=== PATIENT | female | born 1985 | race African-American/Black ===

== ENCOUNTER 2018-08-03 08:26 | Emergency (ER) | payer MEDICAID, OTHER ==
[~2018-08-03] VITALS: Ht 172.7 cm; Wt 91.0 kg
[2018-08-03] MEDS ORDERED: MORPHINE SULFATE 4 MG/ML CPJ (NOT FOR IM USE) IV STA (10:30)
[2018-08-03] MEDS ORDERED: KETOROLAC 30MG/ML VIAL IV STA (10:30)
[2018-08-03] MEDS ORDERED: OXYCODONE HCL/ACETAMINOPHEN 5/325MG TABLET PO ONE (12:00)
[2018-08-03 12:42] VITALS: BP 128/79
== END 2018-08-03 12:46 | disposition home or self-care (01) ==
LOC: ER 08:41
DX: M54.2 Cervicalgia (principal); M79.18 Myalgia, other site
CPT/HCPCS: 73030; 81025; 96374; 96375; 99283; J1885; J2270

== ENCOUNTER 2021-09-23 09:17 | Emergency (ER) | payer SELFPAY ==
[~2021-09-23] VITALS: Ht 167.6 cm; Wt 77.0 kg
[2021-09-23] MEDS ORDERED: KETOROLAC 30MG/ML VIAL IV STA (09:32)
[2021-09-23] MEDS ORDERED: SODIUM CHLORIDE 0.9% 1,000 ML IV ONE (09:45)
[2021-09-23] MEDS ORDERED: HYDROMORPHONE HCL/PF 2MG/ML CPJ IV ONE (09:45)
[2021-09-23 09:59] LABS: BASOPHILS % 0.5 % (0.0-2.0); EOSINOPHILS % 0.9 % (0.0-5.0); HEMATOCRIT. 38.6 % (36.0-48.0); HEMOGLOBIN. 12.8 g/dL (12.0-16.0); LYMPHOCYTES % 28.5 % (20.0-50.0); MEAN CORPUSCULAR HEMOGLOBIN 27.2 pg (28.0-32.0); MEAN CORPUSCULAR VOLUME 81.9 fL (81.0-99.0); MEAN PLATELET VOLUME 8.2 fl (7.4-10.4); NEUTROPHILS % 63.1 % (40.0-76.0); PLATELET 305 x1000/uL (130-400); RED BLOOD CELL COUNT 4.71 mill/uL (4.2-5.4); RED CELL DISTRIBUTION WIDTH 14.1 % (11.6-14.6)
[2021-09-23 10:04] LABS: CHLORIDE 106 mEq/L (98-107)
[2021-09-23] MEDS ORDERED: MORPHINE SULFATE 4 MG/ML CPJ (NOT FOR IM USE) IV ONE (10:30)
[2021-09-23] MEDS ORDERED: IBUP-2029 MT (12:13)
[2021-09-23 12:26] VITALS: BP 110/79
== END 2021-09-23 12:58 | disposition home or self-care (01) ==
LOC: ER 09:31
DX: M79.641 Pain in right hand (principal); D57.1 Sickle-cell disease without crisis
CPT/HCPCS: 36415; 73130; 80053; 85025; 85044; 96361; 96374; 96375; 99284; J1170; J1885; J2270; J7030

== ENCOUNTER 2021-09-25 00:50 | Emergency (ER) | payer MEDICAID ==
[~2021-09-25] VITALS: Ht 165.1 cm; Wt 64.0 kg
[~2021-09-25 00:50] MED LIST: IBUP-2029 MT
[2021-09-25] MEDS ORDERED: VANCOMYCIN 1G PREMIX 200 ML IV SCH (01:45)
[2021-09-25] MEDS ORDERED: CEFTRIAXONE 1 G PREMIX 50 ML IV ONE (01:45)
[2021-09-25] MEDS ORDERED: KETOROLAC 15MG/ML VIAL IV ONE (03:00)
[2021-09-25] MEDS ORDERED: MORPHINE SULFATE 4 MG/ML CPJ (NOT FOR IM USE) IV ONE (03:45)
[2021-09-25 04:04] LABS: BASOPHILS % 0.6 % (0.0-2.0); EOSINOPHILS % 1.4 % (0.0-5.0); HEMATOCRIT. 35.7 % (36.0-48.0); HEMOGLOBIN. 11.8 g/dL (12.0-16.0); LYMPHOCYTES % 27.3 % (20.0-50.0); MEAN CORPUSCULAR HEMOGLOBIN 27.2 pg (28.0-32.0); MEAN CORPUSCULAR VOLUME 82.2 fL (81.0-99.0); MEAN PLATELET VOLUME 9.2 fl (7.4-10.4); MONOCYTES % 6.2 % (2.0-8.0); NEUTROPHILS % 64.5 % (40.0-76.0); PLATELET 243 x1000/uL (130-400); RED BLOOD CELL COUNT 4.34 mill/uL (4.2-5.4); RED CELL DISTRIBUTION WIDTH 14.3 % (11.6-14.6)
[2021-09-25 04:11] LABS: CHLORIDE 111 mEq/L (98-107)
[2021-09-25 04:21] LABS: B-HCG QUANTITATIVE < 1 mIU/mL (<3)
[2021-09-25] MEDS ORDERED: ONDANSETRON HCL 4MG/2ML INJ IV PRN (08:45)
[2021-09-25] MEDS ORDERED: PIPERACILLIN/TAZ 3.375G PREMIX 50 ML IV NR (09:00)
[2021-09-25] MEDS ORDERED: HYDROCODONE/ACETAMINOPHEN 10/325MG TABLET PO PRN (09:15)
[2021-09-25] MEDS ORDERED: ACETAMINOPHEN 325MG TABLET PO PRN (09:15)
[2021-09-25] MEDS ORDERED: NALOXONE HCL 0.4MG/ML VIAL IV PRN (09:30)
[2021-09-25 10:05] VITALS: BP 122/60
[2021-09-25] MEDS ORDERED: CEPH500T MT (13:53)
[2021-09-25] MEDS ORDERED: IBUP-2029 MT (13:53)
[2021-09-25] MEDS ORDERED: IBUPROFEN 600MG TABLET PO ONE (14:00)
[2021-09-25] MEDS ORDERED: PIPERACILLIN/TAZOBACTAM 3.375 G in DEXTROSE 5% WATER 50 ML IV SCH (15:00)
== END 2021-09-25 14:34 | disposition home or self-care (01) ==
LOC: ER 00:50 → CANBEDREQ 15:36
DX: M65.841 Other synovitis and tenosynovitis, right hand (principal); M79.89 Other specified soft tissue disorders
CPT/HCPCS: 36415; 73220; 80053; 84702; 85025; 85651; 86140; 96365; 96367; 96368; 96375; 99284; J0696; J1885; J2270; J2543; J3370

== ENCOUNTER 2023-12-22 15:23 | Emergency (ER) | payer MEDICAID ==
[~2023-12-22] VITALS: Ht 172.7 cm; Wt 94.8 kg
[~2023-12-22 15:23] MED LIST changes: +CEPH500T MT
[2023-12-22 15:30] VITALS: BP 135/69; RESP 16; O2SAT 100
[2023-12-22 15:32] VITALS: PULSE 65
[2023-12-22 17:00] VITALS: TEMP 97.7
[2023-12-22] MEDS: DIPHENHYDRAMINE 25MG CAPSULE PO ONE (17:00)
[2023-12-22] MEDS: ACETAMINOPHEN 325MG TABLET PO ONE (17:00)
[2023-12-22 17:31] LABS: CHLORIDE 107 mEq/L (98-107); POTASSIUM 4.2 mEq/L (3.5-5.1); SODIUM 142 mEq/L (136-145)
[2023-12-22 17:32] LABS: CARBON DIOXIDE 26 mEq/L (21-32)
[2023-12-22 17:33] LABS: CALCIUM 8.8 mg/dL (8.7-10.4)
[2023-12-22 17:38] LABS: CREATININE 0.9 mg/dL (0.6-1.0); GLUCOSE 78 mg/dL (70-105); UREA NITROGEN BLOOD 7 mg/dL (9-23)
[2023-12-22 17:40] LABS: B-HCG QUANTITATIVE < 1 mIU/mL (<3)
[2023-12-22 17:45] LABS: BASOPHILS % 0.7 % (0.0-2.0); EOSINOPHILS % 2.2 % (0.0-5.0); HEMATOCRIT. 37.2 % (36.0-48.0); LYMPHOCYTES % 11.9 % (20.0-50.0); MEAN CORPUSCULAR HEMOGLOBIN 27.8 pg (28.0-32.0); MEAN CORPUSCULAR HGB CONC 32.3 g/dL (31.0-37.0); MEAN CORPUSCULAR VOLUME 86.1 fL (81.0-99.0); MONOCYTES % 5.7 % (2.0-8.0); NEUTROPHILS % 79.5 % (40.0-76.0); RED BLOOD CELL COUNT 4.32 mill/uL (4.2-5.4); RED CELL DISTRIBUTION WIDTH 14.6 % (11.6-14.6)
[2023-12-22 17:47] LABS: DIFFERENTIAL COMMENT 1
[2023-12-22 18:15] LABS: PLATELET 216 x1000/uL (130-400)
[2023-12-22 18:16] LABS: MEAN PLATELET VOLUME 9.4 fl (7.4-10.4)
[2023-12-22] MEDS ORDERED: BENZ200C52 MT (18:40)
== END 2023-12-22 19:15 | disposition home or self-care (01) ==
LOC: ER 15:23
DX: R05.9 Cough, unspecified (principal); B34.9 Viral infection, unspecified; I49.9 Cardiac arrhythmia, unspecified; Z88.5 Allergy status to narcotic agent
CPT/HCPCS: 99285; 71046; 80048; 84702; 83880; 85025; 85044; 36415; 93005; Q0163

== ENCOUNTER 2024-05-26 12:42 | Emergency (ER) | payer MEDICAID ==
[~2024-05-26] VITALS: Ht 180.3 cm; Wt 97.0 kg
[~2024-05-26 12:42] MED LIST changes: +BENZ200C52 MT
[2024-05-26 12:59] VITALS: BP 123/85; PULSE 85; RESP 16; TEMP 98; O2SAT 100
[2024-05-26] MEDS: LIDOCAINE HCL 1% 20ML VIAL INFIL ONE (15:00)
[2024-05-26] MEDS ORDERED: DOXY100T28 MT (15:32)
[2024-05-26] MEDS ORDERED: NAPR-1495 MT (15:32)
== END 2024-05-26 17:05 | disposition home or self-care (01) ==
LOC: ER 12:42
DX: L02.414 Cutaneous abscess of left upper limb (principal); D64.9 Anemia, unspecified; D57.1 Sickle-cell disease without crisis; Z90.49 Acquired absence of other specified parts of digestive tract; Z88.5 Allergy status to narcotic agent
CPT/HCPCS: 99283; 10060; J3490

== ENCOUNTER 2025-05-30 07:42 | Emergency (ER) | payer MEDICAID, OTHER ==
[~2025-05-30] VITALS: Ht 172.7 cm; Wt 90.0 kg
[~2025-05-30 07:42] MED LIST changes: +DOXY100T28 MT; +IBUP-1455 MT; -IBUP-2029 MT; +NAPR-1495 MT
[2025-05-30 07:48] VITALS: TEMP 36.7; O2SAT 100
[2025-05-30 07:55] VITALS: O2SAT 100
[2025-05-30] MEDS: CLINDAMYCIN HCL 150MG CAPSULE PO SCH (08:42)
[2025-05-30 08:44] VITALS: BP 110/80; PULSE 90; RESP 18
[2025-05-30] MEDS: IBUPROFEN 800MG TABLET PO ONE (08:44)
[2025-05-30] MEDS ORDERED: CLIN-194 MT (09:27)
== END 2025-05-30 10:04 | disposition home or self-care (01) ==
LOC: ER 07:42
DX: M79.644 Pain in right finger(s) (principal); D57.1 Sickle-cell disease without crisis; Z79.1 Long term (current) use of non-steroidal anti-inflammatories (NSAID); Z88.5 Allergy status to narcotic agent; Z90.49 Acquired absence of other specified parts of digestive tract
CPT/HCPCS: 73140; 99283